=== PATIENT | female | born 2005 | race Caucasian/White ===

== ENCOUNTER 2025-04-03 17:42 | Emergency (ER) | payer OTHER, BC ==
[~2025-04-03] VITALS: Ht 165.1 cm; Wt 56.2 kg
[2025-04-03 18:26] VITALS: BP 126/74
== END 2025-04-03 18:26 | disposition home or self-care (01) ==
LOC: ED 17:42
DX: S16.1XXA Strain of muscle, fascia and tendon at neck level, initial encounter (principal); V49.9XXA Car occupant (driver) (passenger) injured in unspecified traffic accident, initial encounter
CPT/HCPCS: 99283